=== PATIENT | male | born 1935 | race Hispanic/Latino ===

== ENCOUNTER → 2019-01-26 | Day surgery (SDC) | payer OTHER ==
[2019-01-25 15:24] LABS: BASOPHILS % 0.2 % (0.0-1.0); EOSINOPHILS % 0.4 % (0.0-6.0); HEMATOCRIT 29.4 % (38.2-49.6); HEMOGLOBIN 9.5 g/dL (14.0-18.0); LYMPHOCYTES # (AUTO) 1.9 (1.0-3.2); LYMPHOCYTES % 21.8 % (18.0-39.1); MEAN CORPUSCULAR HEMOGLOBIN 35.1 pg (28-32); MEAN CORPUSCULAR HGB CONC 32.3 g/dL (31-35); MEAN CORPUSCULAR VOLUME 108.5 fL (81-99); MONOCYTES # (AUTO) 1.1 (0.2-0.8); MONOCYTES % 13.3 % (4.4-11.3); NEUTROPHILS # (AUTO) 5.4 (2.1-6.9); PLATELET COUNT 324 x10e3/uL (140-360); RED BLOOD COUNT 2.71 x10e6/uL (4.3-5.7); RED CELL DISTRIBUTION WIDTH 15.4 % (11.7-14.4)
[~2019-01-26] MED LIST: ATORVASTATIN CA20 MG PO; FERROUS SULFAT325 MG PO; LISINOPRIL10 MG PO; PANTOPRAZOLE SO40 MG PO; PROPOFOL IV EMULSION 10 MG/ML 50 ML VIAL ONE; ROSE HIPS PO; SUCRALFATE1 GM PO
--- OUTSIDE RECORDS SUMMARY | 2019-01-26 10:47 | XMS REPORT | Clinical Summary ---
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 Tree And Shrub Pollen Itching 01/01/2019 Medications End Date Status Medication Sig Dispensed Refills Start Date Active acetaminophen (TYLENOL) Take 500 mg 0 500 MG tablet by mouth every 6 (six) hours as needed for mild pain. Active atorvastatin (LIPITOR) 40 Take 1 tablet 90 tablet 1 MG tablet (40 mg total) 8 by mouth daily. 02/04/2019 Active ferrous sulfate 325 (65 Take 1 tablet 60 tablet 0 FE) MG EC tablet (325 mg 9 total) by mouth 2 (two) times a day with meals for 30 days. 02/04/2019 Active ascorbic acid, vitamin C, Take 1 tablet 30 tablet 0 (vitamin C) 1000 MG (1,000 mg 9 tablet total) by mouth daily for 30 days. 02/04/2019 Active sucralfate (CARAFATE) 1 Take 1 tablet 120 tablet 0 gram tablet (1 g total) 9 by mouth 4 (four) times a day before meals and nightly for 30 days. 02/04/2019 Active pantoprazole (PROTONIX) Take 1 tablet 60 tablet 0 40 MG EC tablet (40 mg total) 9 by mouth 2 (two) times a day for 30 days. 02/04/2019 Active lisinopril Take 1 tablet 30 tablet 0 (PRINIVIL,ZESTRIL) 20 mg (20 mg total) 9 tablet by mouth daily for 30 days. 01/05/2019 Discontinued (Stop Taking at Discharge) aspirin (ECOTRIN) 81 MG Take 1 tablet 100 tablet 3 enteric coated tablet (81 mg total) 7 by mouth daily. 01/27/2018 Discontinued (Reorder) atorvastatin (LIPITOR) 40 Take 1 tablet 90 tablet 1 MG tablet (40 mg total) 7 by mouth daily. 01/27/2018 Discontinued (Reorder) lisinopril Take 1 tablet 180 tablet 1 (PRINIVIL,ZESTRIL) 20 mg (20 mg total) 7 tablet by mouth 2 (two) times a day. 04/13/2018 Discontinued (Therapy completed) meloxicam (MOBIC) 7.5 mg Take 1 tablet 30 tablet 0 tablet (7.5 mg 8 total) by mouth daily. 01/27/2018 Discontinued (Reorder) clopidogrel (PLAVIX) 75 TAKE ONE 90 tablet 1 mg tablet TABLET BY 8 MOUTH ONCE DAILY 01/27/2018 Discontinued (Reorder) amLODIPine (NORVASC) 10 TAKE ONE 90 tablet 1 mg tablet TABLET BY 8 MOUTH ONCE DAILY 01/05/2019 Discontinued (Reorder) lisinopril Take 1 tablet 180 tablet 1 (PRINIVIL,ZESTRIL) 20 mg (20 mg total) 8 tablet by mouth 2 (two) times a day. 12/31/2018 Discontinued amLODIPine (NORVASC) 10 Take 1 tablet 90 tablet 1 mg tablet (10 mg total) 8 by mouth daily. 01/05/2019 Discontinued (Stop Taking at Discharge) clopidogrel (PLAVIX) 75 Take 1 tablet 90 tablet 1 mg tablet (75 mg total) 8 by mouth daily. 01/10/2019 valACYclovir (VALTREX) Take 1 tablet 10 tablet 0 500 MG tablet (500 mg 9 total) by mouth 2 (two) times a day for 5 days. 01/12/2019 magnesium oxide 400 mg Take 400 mg 14 tablet 0 magnesium tablet by mouth 2 9 (two) times a day for 7 days. 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 Stop naprosyn Family history of ischemic heart disease 08/24/2016 Family history of CVA 08/24/2016 Routine general medical examination at a health care facility 08/24/2016 Overweight 08/24/2016 Alcohol abuse 08/24/2016 Overview: discussed guidelines and limits. Pt will cut back History of skin cancer 08/24/2016 Atherosclerosis of arteries 08/24/2016 Primary osteoarthritis of right knee 08/24/2016 Tricuspid valve insufficiency, non-rheumatic 08/24/2016 Abnormality of gait 08/24/2016 Glaucoma screening 06/25/2016 Hyperlipidemia 06/23/2016 BMI 28.0-28.9,adult 06/23/2016 TRE on CPAP 06/23/2016 CVA, old, hemiparesis 06/23/2016 Resolved Problems Problem Noted Date Resolved Date Atrial fibrillation 08/24/2016 01/27/2018 Encounters Care Team Description Date Type Specialty Chip Sellers MD ESOPHAGOGASTRODUODENOSCOPY (EGD) with BX 01/03/2019 Surgery Gastroenterology , MD Asya Joy Young, MD 01/03/2019 Anesthesia Gastroenterology Event González Leong DO Obudulu, Rosemary Ogonnaya, MD Other iron deficiency anemia (Primary Dx); Anemia, unspecified type; Gastrointestinal hemorrhage, unspecified gastrointestinal hemorrhage type; Refusal of blood transfusions as patient is [employer]; Generalized weakness; Hyponatremia; Acute posthemorrhagic anemia; Melena; Peptic ulcer 12/31/2018 [facility] General Internal Medicine - Encounter 01/05/2019 Aroldo Dykes MD Pre-op evaluation (Primary Dx); 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 04/13/2018 Office Visit Family Medicine Aroldo Dykes MD 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 (Primary Dx); Tricuspid valve insufficiency, non-rheumatic; TRE on CPAP; CVA, old, hemiparesis; Sensory hearing loss, bilateral; BMI 29.0-29.9,adult; Other hyperlipidemia; Influenza vaccination given; Other viral warts 01/27/2018 Office Visit Family Medicine after 01/25/2018 Immunizations Name Administration Dates Next Due FLUZONE HIGH-DOSE PF 01/27/2018, 01/29/2017 Pneumococcal Conjugate 02/28/2016 Pneumococcal Conjugate 02/19/2015 13-Valent Family History Medical History Relation Name Comments Hypertension Mother Relation Name Status Comments Father Mother Social History Date Tobacco Use Types Packs/Day Years Used Never Smoker Smokeless Tobacco: Never Used Drinks/Week oz/Week Comments Alcohol Use occasional Yes Sex Assigned at Date Recorded Not on file Industry Job Start Date Occupation Not on file Not on file Not on file Travel End Travel History Travel Start No recent travel history available. Last Filed Vital Signs Reading Time Taken Comments Vital Sign 148/70 01/05/2019 3:05 PM CDT Blood Pressure 92 01/05/2019 3:05 PM CDT Pulse 37.1 C (98.7 F) 01/05/2019 3:05 PM CDT Temperature 20 01/05/2019 3:05 PM CDT Respiratory Rate 96% 01/05/2019 3:05 PM CDT Oxygen Saturation - - Inhaled Oxygen Concentration 83.9 kg (185 lb) 12/31/2018 1:52 PM CDT Weight 167.6 cm (5' 6") 12/31/2018 1:52 PM CDT Height 29.86 12/31/2018 1:52 PM CDT Body Mass Index Plan of Treatment Health Maintenance Due Date Last Done Comments SHINGLES VACCINES (#1) 1987 65+ PNEUMOCOCCAL VACCINE 02/27/2017 02/28/2016, 02/19/2015 (2 of 2 - PPSV23) INFLUENZA VACCINE 12/01/2018 01/27/2018, 01/29/2017 Procedures Comments Procedure Name Priority Date/Time Associated Diagnosis ESTIMATED GFR Routine 01/05/2019 9:12 AM CDT MAGNESIUM LEVEL Routine 01/05/2019 9:12 AM CDT BASIC METABOLIC PANEL Routine 01/05/2019 9:12 AM CDT HEMOGLOBIN & HEMATOCRIT Routine 01/05/2019 9:12 AM CDT HEMOGLOBIN & HEMATOCRIT Timed 01/04/2019 10:55 AM CDT ESTIMATED GFR Routine 01/04/2019 6:30 AM CDT BASIC METABOLIC PANEL Routine 01/04/2019 6:30 AM CDT HEMOGLOBIN & HEMATOCRIT Routine 01/04/2019 6:30 AM CDT ESTIMATED GFR Routine 01/03/2019 3:23 PM CDT BASIC METABOLIC PANEL Routine 01/03/2019 3:23 PM CDT HC COMPLETE BLD COUNT Routine 01/03/2019 W/AUTO DIFF 3:23 PM CDT SURGICAL PATHOLOGY Routine 01/03/2019 REQUEST 10:28 AM CDT ESOPHAGOGASTRODUODENOSCOP 01/03/2019 Acute posthemorrhagic Y (EGD) 10:15 AM CDT anemia Melena NM GI BLEEDING STUDY Routine 01/02/2019 7:57 PM CDT XR CHEST 1 VW PORTABLE Routine 01/02/2019 7:00 PM CDT ESTIMATED GFR STAT 01/02/2019 10:51 AM CDT PROTHROMBIN TIME WITH INR STAT 01/02/2019 10:51 AM CDT BASIC METABOLIC PANEL STAT 01/02/2019 10:51 AM CDT HC COMPLETE BLD COUNT STAT 01/02/2019 W/AUTO DIFF 10:[address] ANGIOGRAM PE CHEST STAT 01/01/2019 12:46 PM CDT ECHOCARDIOGRAM 2D Routine 01/01/2019 COMPLETE W MMODE SPECTRAL 10:45 AM CDT COLOR DOPPLER ([id number]) MANUAL DIFFERENTIAL Routine 01/01/2019 7:55 AM CDT ESTIMATED GFR Routine 01/01/2019 7:55 AM CDT COMPREHENSIVE METABOLIC Routine 01/01/2019 PANEL 7:55 AM CDT CBC WITH PLATELET AND Routine 01/01/2019 DIFFERENTIAL 7:55 AM CDT ECG 12-LEAD STAT 01/01/2019 6:52 AM CDT POC GLUCOSE Routine 01/01/2019 6:20 AM CDT TROPONIN Timed 12/31/2018 10:48 PM CDT LACTIC ACID LEVEL, SEPSIS Timed 12/31/2018 - NOW AND REPEAT 2X EVERY 10:48 PM CDT 3 HOURS TROPONIN Timed 12/31/2018 5:31 PM CDT LACTIC ACID LEVEL, SEPSIS Timed 12/31/2018 - NOW AND REPEAT 2X EVERY 5:31 PM CDT 3 HOURS ECG 12-LEAD STAT 12/31/2018 4:33 PM CDT TYPE AND SCREEN Routine 12/31/2018 4:18 PM CDT URINALYSIS SCREEN AND Routine 12/31/2018 MICROSCOPY, WITH REFLEX 4:00 PM CDT TO CULTURE URINE CULTURE Routine 12/31/2018 4:00 PM CDT ID CRITICAL CARE, E/M Routine 12/31/2018 30-74 MINUTES 3:55 PM CDT PARTIAL THROMBOPLASTIN STAT 12/31/2018 TIME (PTT) 3:34 PM CDT PROTHROMBIN TIME WITH INR STAT 12/31/2018 3:34 PM CDT ESTIMATED GFR STAT 12/31/2018 3:24 PM CDT B NATRIURETIC PEPTIDE STAT 12/31/2018 3:24 PM CDT TROPONIN STAT 12/31/2018 3:24 PM CDT LACTIC ACID LEVEL, SEPSIS STAT 12/31/2018 - NOW AND REPEAT 2X EVERY 3:24 PM CDT 3 HOURS MAGNESIUM LEVEL STAT 12/31/2018 3:24 PM CDT PHOSPHORUS LEVEL STAT 12/31/2018 3:24 PM CDT COMPREHENSIVE METABOLIC STAT 12/31/2018 PANEL 3:24 PM CDT HC COMPLETE BLD COUNT STAT 12/31/2018 W/AUTO DIFF 3:24 PM CDT XR CHEST 1 VW PORTABLE STAT 12/31/2018 2:49 PM CDT ECG 12-LEAD Routine 04/13/2018 Benign hypertensive heart 11:10 AM SENIOR JAVA DEVELOPER disease without CHF CBC WITH PLATELET AND Routine 01/27/2018 Benign hypertensive heart DIFFERENTIAL 4:33 PM CDT disease without CHF BASIC METABOLIC PANEL Routine 01/27/2018 Benign hypertensive heart 4:33 PM CDT disease without CHF after 01/25/2018 Results * Estimated GFR (01/05/2019 9:12 AM CDT) Only the most recent of 6 results within the time period is included. Estimated GFR 83 mL/min/1.73 m2 [facility] Comment: INOCENTE [facility] G1 >=90 Normal or high G2 60-89Mildly decreased [id number] Mildly to moderately decreased [id number] Moderately to severely decreased G4 15-29Severely decreased G5 <15Kidney failure The eGFR was calculated using the Chronic Kidney Disease Epidemiology Collaboration (CKD-EPI) equation. Interpretation is based on recommendations of the National Kidney Foundation-Kidney Disease Outcomes Quality Initiative (NKF-KDOQI) published in 2014. Specimen Plasma specimen Performing Organization Address City/State/Zipcode Phone Number [facility] [address] [place] [address] PATHOLOGY AND GENOMIC MEDICINE [facility] [address] * Hemoglobin & hematocrit (01/05/2019 9:12 AM CDT) Only the most recent of 3 results within the time period is included. [facility] HGB 7.0 (LL) 13.0 - 17.3 g/dL [facility] Comment: [facility] Results called to and read ELIZABETH back by __Mary Loving at [facility] on 01/05/19 by rmr repeat H&H=6.9,20.8 HCT 20.8 (L) 34.0 - 45.0 % [facility] Specimen Blood Performing Organization Address City/[facility]/[place] [address] PATHOLOGY AND GENOMIC MEDICINE [address] * Magnesium level (01/05/2019 9:12 AM CDT) Only the most recent of 2 results within the time period is included. [facility] Magnesium 2.00 1.60 - 2.40 mg/dL [facility] Specimen Plasma specimen Performing Organization Address City/State/[place] [address] PATHOLOGY AND GENOMIC MEDICINE [address] * Basic metabolic panel (01/05/2019 9:12 AM CDT) Only the most recent of 5 results within the time period is included. [facility] Sodium 130 (L) 135 - 150 mEq/L [facility] Potassium 3.6 3.5 - 5.0 mEq/L [facility] Chloride 96 (L) 98 - 112 mEq/L [facility] CO2 23 (L) 24 - 31 mmol/L [facility] Anion gap 11@ANIO 7 - 15 mEq/L [facility] BUN 13 7 - 18 mg/dL [facility] Creatinine 0.80 0.70 - 1.20 mg/dL [facility] Glucose 115 (H) 65 - 100 mg/dL [facility] Calcium 8.4 (L) 8.8 - 10.2 mg/dL [facility] Specimen Plasma specimen Performing Organization Address City/State/Zipcode Phone Number [facility] [address] [place] [address] PATHOLOGY AND GENOMIC MEDICINE [facility] [address] [place] [address] HOSPITAL * CBC with platelet and differential (01/03/2019 3:23 PM CDT) Only the most recent of 5 results within the time period is included. WBC 8.6 4.2 - 11.0 k/uL [facility] RBC 2.11 (L) 4.04 - 5.86 m/uL [facility] HGB 7.3 (L) 13.0 - 17.3 g/dL [facility] HCT 21.7 (L) 34.0 - 45.0 % [facility] MCV 102.8 (H) 80.0 - 98.0 fL [facility] MCH 34.6 (H) 27.0 - 34.0 pg [facility] MCHC 33.6 31.5 - 36.5 g/dL [facility] RDW - SD 55.6 (H) 37.0 - 51.0 fL [facility] MPV 8.9 7.4 - 10.4 fL [facility] Platelet count 271 150 - 400 k/uL [facility] Nucleated RBC 0.30 /100 WBC [facility] Neutrophils 67.2 (H) 36.0 - 66.0 % [facility] Lymphocytes 21.3 (L) 24.0 - 44.0 % [facility] Monocytes 9.0 (H) 0.0 - 6.0 % [facility] Eosinophils 0.2 0.0 - 6.0 % [facility] Basophils 0.1 0.0 - 1.2 % [facility] Immature 2.2 (H) 0.0 - 1.0 % [facility] Specimen Blood Performing Organization Address City/State/Zipcode Phone Number [facility] [address] [place] [address] PATHOLOGY AND GENOMIC MEDICINE [facility] [address] [place] [address] HOSPITAL * Surgical pathology request (01/03/2019 10:28 AM CDT) [facility] OF PATHOLOGY AND GENOMIC MEDICINE Surgical See link below for PDF Lab [facility] pathology Report OF PATHOLOGY report AND GENOMIC MEDICINE Result status This is Final Report for [facility] [id number] OF PATHOLOGY AND GENOMIC MEDICINE Specimen Performing Organization Address City/[facility] Phone Number [facility] [address] [place] [address] PATHOLOGY AND GENOMIC MEDICINE * NM GI Bleeding Study (01/02/2019 7:57 PM CDT) Specimen Narrative Performed At Procedure:NM GI [facility] Clinical History:Melena Technique: 4 cc of the patient's blood were removed and the RBCs labeled in vitro with 25 mCi of [id number]. The labeled blood was then reinjected into the patient and dynamic imaging of the abdomen was performed for 1 hour. Findings There is normal activity in the blood pool structures. Faint activity in the LUQ does not move significantly during the exam and most likely represents prominent blood vessels or a hyperemic/inflamed loop of small bowel. Impression: No definite evidence of active bleeding during this scan. JULISA-METH-PC Procedure Note Interface, Radiology Results Incoming - 01/02/2019 10:20 PM CDT Procedure: NM GI BLEEDING STUDY Clinical History: Melena Technique: 4 cc of the patient's blood were removed and the RBCs labeled in vitro with 25 mCi of [id number]. The labeled blood was then reinjected into the patient and dynamic imaging of the abdomen was performed for 1 hour. Findings There is normal activity in the blood pool structures. Faint activity in the LUQ does not move significantly during the exam and most likely represents prominent blood vessels or a hyperemic/inflamed loop of small bowel. Impression: No definite evidence of active bleeding during this scan. JULISA-TUTORize-PC Performing Organization Address City/State/Zipcode Phone Number [facility] [address] [place] [address] * XR Chest 1 Vw Portable (01/02/2019 7:00 PM CDT) Only the most recent of 2 results within the time period is included. Specimen Narrative Performed At Examination:XR CHEST 1 VW PORTABLE RADIEL Clinical history:"abnormal breath sounds" Comparison:12/31/2018 IMPRESSION: There are no new alveolar opacities within either lung. No pneumothoraces are identified. The cardiomediastinal silhouette is unchanged. The bones of the chest are unchanged. [facility]-[id number] Procedure Note Hm Interface, Radiology Results Incoming - 01/02/2019 8:05 PM CDT Examination: XR CHEST 1 VW PORTABLE Clinical history: "abnormal breath sounds" Comparison: 12/31/2018 IMPRESSION: There are no new alveolar opacities within either lung. No pneumothoraces are identified. The cardiomediastinal silhouette is unchanged. The bones of the chest are unchanged. [facility]-[id number] Performing Organization Address [facility]/State/Zipcode Phone Number [facility] [address] [place] [address] * Prothrombin time with INR (01/02/2019 10:51 AM CDT) Only the most recent of 2 results within the time period is included. Prothrombin 14.2 11.5 - 14.5 sec [facility] time [facility] INR 1.13 [facility] Comment: [facility] For patients on anticoagulant ELIZABETH therapy, reference ranges HOSPITAL below: Indication: INR Value Treatment of Venous Thrombosis, 2.0-3.0 pulmonary emboli, or prophylaxis of a venous thrombosis, or systemic emboli. High dose, high risk patients 3.0-4.5 with mechanical valves. NOTE:INR values over 3.0 are sometimes associated with gastrointestinal hemorrhage, especially values over 4.0. Specimen Blood Performing Organization Address City/State/Zipcode Phone Number [facility] [address] [place] [address] PATHOLOGY AND GENOMIC MEDICINE [facility] [address] [place] [address] HOSPITAL * CT Angiogram Pe Chest (01/01/2019 12:46 PM CDT) Specimen Narrative Performed At EXAMINATION: [facility] CT ANGIOGRAM PE CHEST CLINICAL HISTORY: chest paintachycardia TECHNIQUE: CT angiographic images of the chest were obtained during intravenous administration of iodinated contrast. Computerized reformatted images and 3-D MIP images were also obtained and archived. CT imaging was performed with iterative reconstruction techniques and/orautomated exposure control to reduce radiation dose. COMPARISON: None. IMPRESSION: There is no evidence of pulmonary embolism Mild atelectasis in the lung bases No suspicious focal pulmonary nodules or infiltrates No significant lymphadenopathy. No pleural or pericardial effusions There is a small hiatal hernia. Otherwise images upper abdomen are unremarkable Age related changes are present throughout the bony structures without evidence of a suspicious focal lesion. Moderate calcified atherosclerotic vascular disease throughout the arterial structures. [facility]-[id number] Procedure Note Interface, Radiology Results Incoming - 01/01/2019 12:51 PM CDT EXAMINATION: CT ANGIOGRAM PE CHEST CLINICAL HISTORY: chest pain tachycardia TECHNIQUE: CT angiographic images of the chest were obtained during intravenous administration of iodinated contrast. Computerized reformatted images and 3-D MIP images were also obtained and archived. CT imaging was performed with iterative reconstruction techniques and/or automated exposure control to reduce radiation dose. COMPARISON: None. IMPRESSION: There is no evidence of pulmonary embolism Mild atelectasis in the lung bases No suspicious focal pulmonary nodules or infiltrates No significant lymphadenopathy. No pleural or pericardial effusions There is a small hiatal hernia. Otherwise images upper abdomen are unremarkable Age related changes are present throughout the bony structures without evidence of a suspicious focal lesion. Moderate calcified atherosclerotic vascular disease throughout the arterial structures. [facility]-[id number] Performing Organization Address City/State/Zipcode Phone Number [facility] [address] [place] [address] * Echocardiogram complete w contrast and 3D if needed (01/01/2019 10:45 AM CDT) Ao Root 3.03 cm [facility] Diameter AoV Area, Vmax 3.04 cm2 HM [facility] AoV Area, VTI 3.07 cm2 HM [facility] AoV Mean PG 3.92 mmHg HM [facility] AoV Peak PG 8.94 mmHg HM [facility] AoV Vmax 1.50 m/s HM [facility] AoV VTI 0.30 m HM [facility] BSA Pena 2.02 m2 HM [facility] BSA 1.93 m2 HM [facility] IVS,d 1.06 cm HM [facility] IVS/LVPW,2D 1.05 HM [facility] Left Atrium 3.59 cm HM [facility] Dimension Anterior LV,d 4.54 cm HM [facility] LV EF,2D 48.13 % HM [facility] LV,s 3.65 cm HM [facility] LVOT area 3.66 cm2 HM [facility] LVOT Diam,S 2.16 cm HM [facility] LVOT Vmax 1.24 m/s HM [facility] LVOT VTI 0.25 m HM [facility] LVPWD,d 1.00 cm HM [facility] PV Pk Grad 8.94 mmHg HM [facility] PV VMAX 1.50 m/s HM [facility] TR Vpeak 2.34 mm/s HM [facility] MV E A ratio 0.96 HM [facility] TR pk grad 21.95 mmHg HM [facility] AoV area i VTI 1.59 cm2/m2 HM [facility] BSA Primo BMI 29.86 kg/m2 HM [facility] E wave 258.52 msec HM [facility] decelartion time IVRT 145.58 msec HM [facility] MV Peak A Alex 0.85 m/s HM [facility] MV valve area p 2.93 cm2 HM [facility] 1/2 method MV Peak E Alex 0.81 m/s HM [facility] MV stenosis 74.97 ms HM [facility] pressure 1/2 time AV LVOT peak 6.13 mmHg HM [facility] gradient Ao Root 3.03 cm HM [facility] Diameter MV mean 1.91 mmHg HM [facility] gradient LV SYS VOL 56.28 ml HM [facility] LV GONSALVES VOL 94.54 ml HM [facility] LA area s A4C 21.27 cm2 HM [facility] LV SI Teich 2D 19.78 ml/m2 HM [facility] LV SV Teich 2D 38.26 ml HM [facility] LV Vol s Teich 56.28 ml HM [facility] PSAX LVOT CI 3.31 l/min/m2 HM [facility] LVOT CO 6.41 l/min HM [facility] LVOT HR for 70.07 bpm HM [facility] LVOT CO LVOT SI 47.30 ml/m2 HM [facility] MR peak grad 3.92 mmHg HM [facility] MV Vmax 0.99 m HM [facility] MV VTI Tips 0.26 m HM [facility] BSA Haycock 2.00 m2 HM [facility] AoV Vmn 0.90 HM [facility] IVS s 2D 1.33 HM [facility] LV FS Teich 2D 19.65 HM [facility] MV AE ratio 1.04 HM [facility] LV FS Cube 2D 19.65 HM [facility] LVOT Vmn 0.79 HM [facility] Pt Size 167.64 HM [facility] Pt Wt 83.91 HM [facility] Aov area Vmn 3.21 cm2 HM [facility] LA A_P score P 1.21 HM [facility] LVOT mean grad 2.96 mmHg HM [facility] MAX Pred HR 138.17 HM [facility] 85 of MPHR 117.44 HM [facility] AoV area I VMN 1.66 cm2/m2 HM [facility] bsa Calc MPHR 138.17 bpm HM [facility] IVS pct thck 26.41 % HM [facility] PLAX LV SI Cube 2D 23.32 ml/m2 HM [facility] LV SV Cube 2D 45.13 ml HM [facility] LV vol d cube 93.77 ml HM [facility] 2D LV vol s cube 48.64 ml HM [facility] 2D LVPW pct thck 21.94 % HM [facility] PLAX LVPW s PLAX 1.22 cm HM [facility] MV Decel slope 3.15 m/s2 HM [facility] Pred Exer Dur 5.36 HM [facility] R1 Pred METS R1 5.73 HM [facility] LA Vol MOD A4C 56.30 ml HM [facility] Velocity Ratio 0.83 m/s HM [facility] (V1/V2) EF 40.47 % HM [facility] E/A ratio 0.95 HM [facility] Specimen Narrative Performed At Performing Organization Address City/State/Zipcode Phone Number [facility] [address] [place] [address] * Manual differential (01/01/2019 7:55 AM CDT) Manual PERFORMED [facility] differential [facility] Neutrophils 86.0 (H)Comment: Corrected 36.0 - 66.0 % [facility] result; previously reported as [facility] 78.0 on 01/01/2019 at 08:31 by [facility] Lymphocytes 9.0 (L)Comment: Corrected 24.0 - 44.0 % [facility] result; previously reported as [facility] 8.1 on 01/01/2019 at 08:31 by [facility] Monocytes 5.0Comment: Corrected result; 0.0 - 6.0 % [facility] previously reported as 9.8 on [facility] 01/01/2019 at 08:31 by [facility] Eosinophils 0.0Comment: Corrected result; 0.0 - 6.0 % [facility] previously reported as 0.1 on [facility] 01/01/2019 at 08:31 by [facility] Basophils 0.0Comment: Corrected result; 0.0 - 1.2 % [facility] previously reported as 0.1 on [facility] 01/01/2019 at 08:31 by [facility] Metamyelocytes 0 0 - 1 % [facility] Promyelocytes 0 0 - 1 % [facility] Platelet slide Lorelei adequate [facility] review [facility] [facility] Anisocytosis Slight [facility] Polychromasia Slight [facility] Ovalocytes Slight [facility] Enlarged Few [facility] platelets [facility] Specimen Performing Organization Address City/State/Zipcode Phone Number [facility] DEPARTMENT OF [address] [place] [address] PATHOLOGY AND GENOMIC MEDICINE [facility] [address] * Comprehensive metabolic panel (01/01/2019 7:55 AM CDT) Only the most recent of 2 results within the time period is included. Sodium 127 (L) 135 - 150 mEq/L [facility] Potassium 3.5 3.5 - 5.0 mEq/L [facility] Chloride 90 (L) 98 - 112 mEq/L [facility] CO2 24 24 - 31 mmol/L [facility] Anion gap 13@ANIO 7 - 15 mEq/L [facility] BUN 16 7 - 18 mg/dL [facility] Creatinine 0.80 0.70 - 1.20 mg/dL [facility] Glucose 119 (H) 65 - 100 mg/dL [facility] Calcium 8.2 (L) 8.8 - 10.2 mg/dL [facility] Protein 5.8 (L) 6.3 - 8.3 g/dL [facility] Albumin 2.8 (L) 3.5 - 5.0 g/dL [facility] A/G ratio 0.9 0.7 - 3.8 [facility] Alkaline 66 0 - 129 U/L [facility] phosphatase [facility] AST 18 10 - 50 U/L [facility] ALT 24 5 - 50 U/L [facility] Total bilirubin 1.0 0.2 - 1.2 mg/dL [facility] Specimen Plasma specimen Performing Organization Address City/[facility] Phone Number [facility] DEPARTMENT OF [address] [place] [address] PATHOLOGY AND GENOMIC MEDICINE [address] * ECG 12 lead (01/01/2019 6:52 AM CDT) Only the most recent of 3 results within the time period is included. Pathologist [facility] Ventricular 81 [facility] MUSE rate Atrial rate 81 [facility] ID interval 138 [facility] QRSD interval 78 [facility] QT interval 358 [facility] QTC interval 415 [facility] P axis 1 32 [facility] QRS axis 1 25 [facility] MUSE T wave axis 61 [facility] MUSE EKG impression Normal sinus rhythm-Normal [facility] MUSE ECG-In automated comparison with ECG of 31-DEC-2018 16:33,-No significant change was found- Specimen Narrative Performed At Performing Organization Address City/[facility] Centercode Phone Number [facility] MUSE [address] [place] [address] * POC glucose (01/01/2019 6:20 AM CDT) Pathologist [facility] POC glucose 133 (H) 65 - 100 mg/dL [facility] Comment: [facility] Meter ID: [id number] ELIZABETH Rack Room Worker: [facility] Specimen Performing Organization Address City/[facility]/Zipcode Phone Number [facility] DEPARTMENT OF [address] [place] [address] PATHOLOGY [place] [address] HOSPITAL * Lactic acid level, SEPSIS - Now and repeat 2x every 3 hours (12/31/2018 10:48 PM CDT) Only the most recent of 3 results within the time period is included. Lactic acid 1.4 0.5 - 2.2 mmol/L [facility] Specimen Blood Performing Organization Address [facility] Centercomt Phone Number [facility] [place] [address] [place] [address] PATHOLOGY AND [facility] MEDICINE [address] * Troponin (12/31/2018 10:48 PM CDT) Only the most recent of 3 results within the time period is included. Troponin 0.015 0.000 - 0.040 ng/mL [facility] Comment: [facility] changed methodology effective: HOSPITAL 09/06/2018 at 10:00 am The new method has a 99th percentile cutoff of 0.040 ng/mL Specimen Plasma specimen Performing Organization Address [facility] Phone Number [facility] DEPARTMENT OF [address] [place] [address] PATHOLOGY AND GENOMIC MEDICINE [address] * Type and screen (12/31/2018 4:18 PM CDT) ABO grouping A [facility] Rh type POS [facility] Antibody screen NEG WARREN (gel) [facility] Specimen Blood Performing Organization Address City/[facility] Centercode Phone Number [facility] DEPARTMENT OF [address] [place] [address] PATHOLOGY AND GENOMIC MEDICINE [facility] [address] [place] [address] HOSPITAL * Urinalysis screen and microscopy, with reflex to culture (12/31/2018 4:00 PM CDT) Specimen site Clean catch [facility] Color, UA Yellow [facility] Appearance, UA Clear [facility] Specific 1.016 1.001 - 1.035 [facility] gravity, [facility] pH, UA 7.0 5.0 - 8.5 [facility] Protein, UA Negative Negative [facility] Glucose, UA Negative Negative [facility] Ketones, UA Negative Negative [facility] Bilirubin, UA Negative Negative [facility] Blood, UA Negative Negative [facility] Nitrite, UA Negative Negative [facility] Urobilinogen, 2.0 (A) <2.0 [facility] Leukocyte Negative Negative [facility] esterase, [facility] Epithelial Few /HPF [facility] cells, [facility] WBC, UA 1 0 - 1 /HPF [facility] RBC, UA 1 0 - 5 /HPF [facility] Bacteria, UA None seen None seen [facility] Yeast, UA None seen [facility] Yeast with None seen [facility] Specimen Urine Performing Organization Address City/[facility]/Zipcode Phone Number [address] [place] [place] [address] PATHOLOGY AND GENOMIC MEDICINE [address] [place] [address] HOSPITAL * Urine culture (12/31/2018 4:00 PM CDT) Urine culture SEE COMMENTComment: [facility] Bacteriuria screen negative. [facility] Specimen Urine Performing Organization Address City/[facility] Centercode Phone Number [address] [place] [id number] PATHOLOGY AND GENOMIC MEDICINE [address] [place] [address] HOSPITAL * CRITICAL CARE (12/31/2018 3:55 PM CDT) Narrative Performed At González Leong DO 12/31/20185:05 PM Critical Care Performed by: Gonázlez Leong DO Authorized by: González Leong DO Critical care provider statement: Critical care time (minutes):35 Critical care time was exclusive of:Separately billable procedures and treating other patients Critical care was necessary to treat or prevent imminent or life-threatening deterioration of the following conditions: GI Bleed, anemia. Critical care was time spent personally by me on the following activities:Development of treatment plan with patient or surrogate, discussions with consultants, discussions with primary provider, evaluation of patient's response to treatment, examination of patient, interpretation of cardiac output measurements, obtaining history from patient or surrogate, ordering and performing treatments and interventions, ordering and review of laboratory studies, ordering and review of radiographic studies, pulse oximetry, re-evaluation of patient's condition and review of old charts * Partial thromboplastin time, activated (12/31/2018 3:34 PM CDT) [facility] PTT 27.2 23.0 - 36.0 sec [facility] Comment: [facility] PTT therapeutic range for ELIZABETH unfractionated heparin is HOSPITAL 61.0-112.0 seconds which corresponds to Anti-Xa 0.3-0.7 U/ml. Specimen Blood Performing Organization Address [facility] [place]erc[place] [address] PATHOLOGY AND [facility] MEDICINE [address] * Phosphorus level (12/31/2018 3:24 PM CDT) [facility] Phosphorus 3.9 2.4 - 4.5 mg/dL [facility] Specimen Plasma specimen Performing Organization Address [facility] Centerc[place] [address] PATHOLOGY AND GENOMIC MEDICINE [address] * B natriuretic peptide (12/31/2018 3:24 PM CDT) [facility] BNP 37 0 - 100 pg/mL [facility] Specimen Blood Performing Organization Address City/State/Zipcode Phone Number [facility] DEPARTMENT OF [address] [place] [address] PATHOLOGY AND GENOMIC MEDICINE [employer] ELIZABETH [address] [place] [address] HOSPITAL after 01/25/2018 Insurance Type Payer Benefit Subscriber ID Effective Phone Address Plan / Dates Group HMO AETNA MEDICARE AETNA xxxxxxxx 2019- MEDICARE Present HMO PRIME Advance Directives For more information, please contact: [phone] 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
[2019-01-26 14:50] VITALS: BP 156/83
== END | disposition home or self-care (01) ==
LOC: OR 10:44
PROVIDERS: ATTEND Internal Medicine
DX: K25.3 Acute gastric ulcer without hemorrhage or perforation (principal); K29.50 Unspecified chronic gastritis without bleeding; K31.89 Other diseases of stomach and duodenum; K21.9 Gastro-esophageal reflux disease without esophagitis; D64.9 Anemia, unspecified; I10 Essential (primary) hypertension; I69.351 Hemiplegia and hemiparesis following cerebral infarction affecting right dominant side; G47.33 Obstructive sleep apnea (adult) (pediatric); E78.5 Hyperlipidemia, unspecified; Z01.810 Encounter for preprocedural cardiovascular examination; Z01.812 Encounter for preprocedural laboratory examination
CPT/HCPCS: 36415; 43239; 85025; 93005; J2704

== ENCOUNTER → 2019-02-23 | Day surgery (SDC) | payer MEDICARE ==
[2019-02-21 13:51] LABS: BASOPHILS % 0.4 % (0.0-1.0); EOSINOPHILS # (AUTO) 0.1 (0.0-0.4); EOSINOPHILS % 1.9 % (0.0-6.0); HEMATOCRIT 31.6 % (38.2-49.6); HEMOGLOBIN 10.4 g/dL (14.0-18.0); LYMPHOCYTES # (AUTO) 1.5 (1.0-3.2); MEAN CORPUSCULAR HEMOGLOBIN 33.9 pg (28-32); MEAN CORPUSCULAR HGB CONC 32.9 g/dL (31-35); MEAN CORPUSCULAR VOLUME 102.9 fL (81-99); MONOCYTES # (AUTO) 0.6 (0.2-0.8); MONOCYTES % 12.3 % (4.4-11.3); NEUTROPHILS # (AUTO) 2.6 (2.1-6.9); NEUTROPHILS % 54.2 % (38.7-80.0); PLATELET COUNT 243 x10e3/uL (140-360); RED BLOOD COUNT 3.07 x10e6/uL (4.3-5.7); RED CELL DISTRIBUTION WIDTH 13.2 % (11.7-14.4)
[~2019-02-23] MED LIST changes: +LIDOCAINE HCL 2% LOCAL INJ 5 ML SDV VIAL INJ ONE; +MIDAZOLAM HCL 2 MG/2 ML VIAL ONE
[2019-02-23 13:20] VITALS: BP 172/91
== END | disposition home or self-care (01) ==
LOC: OR 09:21
PROVIDERS: ATTEND Internal Medicine
DX: K25.3 Acute gastric ulcer without hemorrhage or perforation (principal); D64.9 Anemia, unspecified; I10 Essential (primary) hypertension; Z86.73 Personal history of transient ischemic attack (TIA), and cerebral infarction without residual deficits; K62.1 Rectal polyp
CPT/HCPCS: 36415; 45380; 85025; J2001; J2250; J2704; 45378